=== PATIENT | female | born 1970 | race Two or more races ===

== ENCOUNTER 2016-06-28 08:53 | Outpatient (CLI) | payer MEDICAID | END 2016-06-28 08:54 | disposition home or self-care (01) | DX: I10 Essential (primary) hypertension (principal); M77.10 Lateral epicondylitis, unspecified elbow; F31.81 Bipolar II disorder ==

== ENCOUNTER 2016-07-03 11:37 | Outpatient (CLI) | payer MEDICAID | END 2016-07-03 11:38 | disposition home or self-care (01) | DX: G47.33 Obstructive sleep apnea (adult) (pediatric) (principal) ==

== ENCOUNTER 2016-07-29 18:57 | Outpatient (CLI) | payer MEDICAID | END 2016-07-29 18:58 | disposition home or self-care (01) | DX: G47.33 Obstructive sleep apnea (adult) (pediatric) (principal); Z68.39 Body mass index [BMI] 39.0-39.9, adult ==